=== PATIENT | female | born 1995 | race Two or more races ===

== ENCOUNTER 2017-01-20 11:30 | Emergency (ER) | payer SELFPAY ==
[2017-01-20 12:51] VITALS: BP 115/71
--- NOTE | 2017-01-20 13:41 | RAD ---
Indication right-sided pain radiating to the back. No history of injury. A single view of the chest was obtained as well as films of right ribs. No prior imaging of the chest is available. The heart, pulmonary vessels and mediastinum appear normal. The lungs are clear. There is no pleural fluid or pneumothorax. Films of right ribs appear unremarkable. IMPRESSION: Normal single view chest. Normal plain films right ribs
[2017-01-20 13:56] LABS: BILIRUBIN,URINE NEGATIVE (NEG); GLUCOSE,URINE NEGATIVE (NEG); NITRITE,URINE NEGATIVE (NEG); PROTEIN,URINE NEGATIVE (NEG-TRACE)
[2017-01-20 14:04] LABS: BACTERIA,URINE MOD /HPF (0-FEW); RBC,URINE OCC /HPF (0-2)
[2017-01-20 14:05] LABS: SQUAMOUS EPITHELIAL CELL,UR MOD /LPF
[2017-01-20] MEDS ORDERED: CEPH500T PO (14:35)
[2017-01-20] MEDS ORDERED: TRAM-29 PO (14:35)
--- NOTE | 2017-01-20 14:35 | PHYS DOC ---
Past Medical History Past Medical History: No Pertinent History Past Surgical History: No Surgical History Alcohol Use: None Drug Use: None Adult General Chief Complaint Chief Complaint: RIB PAIN HPI HPI Patient is a 21 year old female in the ED complaining of right lower ribs pain radiating to her right mid back that began 5 days ago. Patient denies any fever nausea vomiting. 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 Review of Systems Review of Systems Constitutional: Denies fever or chills [] Eyes: Denies change in visual acuity, redness, or eye pain [] HENT: Denies nasal congestion or sore throat [] Respiratory: Right lower rib pain Cardiovascular: No additional information not addressed in HPI [] GI: Denies abdominal pain, nausea, vomiting, bloody stools or diarrhea [] : Denies dysuria or hematuria [] Musculoskeletal: Right mid back pain Integument: Denies rash or skin lesions [] Neurologic: Denies headache, focal weakness or sensory changes [] Endocrine: Denies polyuria or polydipsia [] Allergies Allergies Allergies Coded Allergies Type Severity Reaction Last Updated Verified No Known Drug Allergies 12/25/14 No Physical Exam Physical Exam Constitutional: Well developed, well nourished, no acute distress, non-toxic appearance. [] HENT: Normocephalic, atraumatic, bilateral external ears normal, oropharynx moist, no oral exudates, nose normal. [] Eyes: PERRLA, EOMI, conjunctiva normal, no discharge. [] Neck: Normal range of motion, no tenderness, supple, no stridor. [] Cardiovascular:Heart rate regular rhythm, no murmur [] Lungs & Thorax: Bilateral breath sounds clear to auscultation [] Abdomen: Bowel sounds normal, soft, no tenderness, no masses, no pulsatile masses. [] Skin: Warm, dry, no erythema, no rash. [] Back: No tenderness, no CVA tenderness. [] Extremities: No tenderness, no cyanosis, no clubbing, ROM intact, no edema. [] Neurologic: Alert and oriented X 3, normal motor function, normal sensory function, no focal deficits noted. [] Psychologic: Affect normal, judgement normal, mood normal. [] Current Patient Data Vital Signs Vital Signs Date Time Temp Pulse Resp B/P Pulse Ox O2 Delivery O2 Flow Rate FiO2 5/1/17 12:51 98.2 85 16 100 Room Air 98.2 Lab Values Laboratory Tests Test 01/20/17 12:19 01/20/17 13:10 POC Urine HCG, Qualitative Hcg negative (Negative) Urine Color Yellow Urine Clarity Clear Urine pH 6.0 Urine Specific [place] 1.020 Urine Protein Negativemg/dL (NEG-TRACE) Urine Glucose (UA) Negativemg/dL (NEG) Urine Ketones (Stick) Negativemg/dL (NEG) Urine Blood Negative (NEG) Urine Nitrite Negative (NEG) Urine Bilirubin Negative (NEG) Urine Urobilinogen Dipstick 1.0mg/dL (0.2 mg/dL) Urine Leukocyte Esterase Large (NEG) Urine RBC Occ/HPF (0-2) Urine WBC 5-10/HPF (0-4) Urine Squamous Epithelial Cells Mod/LPF Urine Bacteria Mod/HPF (0-FEW) Urine Mucus Slight/LPF EKG EKG [] Radiology/Procedures Radiology/Procedures [] Course & Med Decision Making Course & Med Decision Making Pertinent Labs and Imaging studies reviewed. (See chart for details) Patient is in the ED complaining of right flank/lower rib pain. Chest x-ray interpreted by radiologist as negative for any acute findings. Urine positive for UTI. Discharged with cephalexin for 7 days. Given prescription for Ultram for pain. Follow-up with PCP in one week. Dragon Disclaimer Dragon Disclaimer This electronic medical record was generated, in whole or in part, using a voice recognition dictation system. Departure Departure Impression: Primary Impression: Urinary tract infection Disposition: HOME, SELF-CARE Condition: STABLE Referrals: NO PCP (PCP) Follow-up with your doctor in one week Patient Instructions: Urinary Tract Infection Additional Instructions: You were seen for rib/flank pain. Your chest x-ray is normal. Your urine is showing you have a urinary tract infection. We put you on antibiotics for 7 days. Follow-up with your doctor in one week. Scripts Tramadol Hcl (Ultram)50 Mg Tablet1 Tab PO Q6HRS #30 TAB Prov:MUTUNGA,[employer]OBBY [employer] 01/20/17 Cephalexin 500 Mg Tablet1 Tab PO BID #14 TAB Prov:MUTUNGA,[employer]OBBY [employer] 01/20/17 Problem Qualifiers Primary Impression: Urinary tract infection Urinary tract infection type: acute cystitis Hematuria presence: without hematuria Qualified Code: N30.00 - Acute cystitis without hematuria MUTUNGA,[employer]OBBY [employer] January 20, 2017 14:35
== END 2017-01-20 14:52 | disposition home or self-care (01) ==
LOC: ER 11:30
DX: N30.00 Acute cystitis without hematuria (principal); R07.81 Pleurodynia
CPT/HCPCS: 71101; 81001; 81025; 99285

== ENCOUNTER 2018-06-14 09:50 | Emergency (ER) | payer SELFPAY ==
[~2018-06-14] VITALS: Ht 162.6 cm; Wt 67.1 kg
[~2018-06-14 09:50] MED LIST: CEPH500T PO; TRAM-48 PO
[2018-06-14 09:52] VITALS: BP 118/75
[2018-06-14] MEDS ORDERED: CEPH500C PO (10:04)
--- NOTE | 2018-06-14 10:25 | PHYS DOC ---
Past Medical History Past Medical History: No Pertinent History Past Surgical History: No Surgical History Alcohol Use: None Drug Use: None Adult General Chief Complaint Chief Complaint: EYE PROBLEMS HPI HPI Patient is a 22 year old f p/w eye problem left eye redness irritation since eyelash replacement a few dyas ago. vision okay using pinkeye antibitotic drops with minimal relief Review of Systems Review of Systems C. Current Medications Current Medications Current Medications Medications (Trade) Dose Ordered Sig/Dominique Start Time Stop Time Status Last Admin Dose Admin Fluorescein Sodium (Ful-Clover) 1 strip 1X ONCE 06/14/18 10:30 06/14/18 10:31 06/14/18 10:13 1 STRIP Tetracaine HCl (Tetracaine) 1 drop 1X ONCE 06/14/18 10:30 06/14/18 10:31 06/14/18 10:13 1 DROP Allergies Allergies Allergies Coded Allergies Type Severity Reaction Last Updated Verified No Known Drug Allergies 12/25/14 No Physical Exam Physical Exam Constitutional: Well developed, well nourished, no acute distress, non-toxic appearance. [] HENT: Normocephalic, atraumatic, bilateral external ears normal, oropharynx moist, no oral exudates, nose normal. [] Eyes: left conj injected irritated limbic sparing. pupil normal. va 20/25. no corneal uptake mild periorbital erythema with palpable lymph node preauricaluar Skin: Warm, dry, no erythema, no rash. [] Back: No tenderness, no CVA tenderness. [] Extremities: No tenderness, no cyanosis, no clubbing, ROM intact, no edema. [] Neurologic: Alert and oriented X 3, normal motor function, normal sensory function, no focal deficits noted. [] Psychologic: Affect normal, judgement normal, mood normal. [] Current Patient Data Vital Signs Vital Signs Date Time Temp Pulse Resp B/P (MAP) Pulse Ox O2 Delivery O2 Flow Rate FiO2 06/14/18 09:52 98.6 73 18 118/75 (89) 100 Room Air 98.6 EKG EKG [] Radiology/Procedures Radiology/Procedures [] Course & Med Decision Making Course & Med Decision Making Pertinent Labs and Imaging studies reviewed. (See chart for details) probable chemical conjunctivitis give keflex due to periorbital erythema however. return precautions dsicussed allso use anthistamine drops[] Dragon Disclaimer Dragon Disclaimer This electronic medical record was generated, in whole or in part, using a voice recognition dictation system. Departure Departure Impression: Primary Impression: Conjunctivitis Disposition: 01 HOME, SELF-CARE Condition: IMPROVED Patient Instructions: Conjunctivitis, Chemical Scripts Cephalexin (CEPHALEXIN) 500 Mg Capsule 1 CAP PO TID, #21 CAP Prov: LUIS FULTON MD 06/14/18 LUIS FULTON MD Jun 14, 2018 10:25
[2018-06-14] MEDS ORDERED: FLUORESCEIN OPHTH TEST STRIP. OS ONE (10:30)
[2018-06-14] MEDS ORDERED: TETRACAINE 0.5% OPHTH SOLUTION 4ML BOTTLE. OS ONE (10:30)
== END 2018-06-14 10:19 | disposition home or self-care (01) ==
LOC: ER 09:50
DX: H10.9 Unspecified conjunctivitis (principal)
CPT/HCPCS: 99283